=== PATIENT | female | born 1950 | race Caucasian/White ===

== ENCOUNTER 2025-05-02 14:11 | Inpatient (IN) ==
[2025-05-02 14:55] LABS: Hematocrit (blood only) 46.8 % (37.0-47.0); Hemoglobin 15.6 g/dl (12.0-16.0); Immature Granulocytes # (auto) 0.03 K/uL (0.01-0.20); Immature Granulocytes % (auto) 0.4 %; Mean Corpuscular Hemoglobin 30.7 pg (25.0-34.0); Mean Corpuscular Volume 92.1 fL (80.0-100.0); Platelet Count 359 K/uL (130-400); RDW Standard Deviation 42.8 fL (36.4-46.3); Red Blood Count 5.08 M/uL (4.20-5.40); White Blood Count 7.79 K/ul (4.8-10.8)
[2025-05-02 15:21] LABS: Alanine Aminotransferase 13.0 U/L (7-52); Albumin Globulin Ratio 1.2 (0.9-2); Alkaline Phosphatase 71.0 U/L (34-104); Anion Gap 8.0 (3-11); Bilirubin,Total 0.5 mg/dl (0.2-1.0); Blood Urea Nitrogen 11.0 mg/dl (6-23); Calcium 9.8 mg/dl (8.6-10.3); Carbon Dioxide 28.0 mmol/L (21-32); Chloride 106.0 mmol/L (98-107); Creatinine Clr Calc Pharmacy 51.9 ml/min; Globulin 3.5 gm/dl (2.5-4.0); Glucose 93.0 mg/dl (70-99(Fasting)); Lipase 16.0 U/L (11-82); Potassium 4.1 mmol/L (3.5-5.1); Sodium 142.0 mmol/L (136-145); Total Protein 7.7 gm/dl (6.0-8.3)
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
[2025-05-02 16:34] LABS: Appearance Urine Cloudy (Clear); Bacteria Urine Automated 4+ (None Seen); Cast Urine Automated 0-2 /lpf (0-2); Epithelial Cell Urine Auto 0-2 /hpf (0-2); Glucose Urine UA Negative (Negative); RBC Urine Automated 0-2 /hpf (0-2); WBC Urine Automated >50 /hpf (0-5)
[2025-05-02] MEDS: cefTRIAXone SODIUM 2,000 MG/50 ML BAG IV STA (17:49)
[2025-05-02] MEDS: DROPERIDOL 5 MG/2 ML VIAL IV STA (17:50)
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
[2025-05-02] MEDS: FOLIC ACID 1 MG TAB PO STA (19:42)
[2025-05-02] MEDS: THIAMINE HCL 100 MG TAB PO STA (19:42)
[2025-05-02] MEDS: LACTATED RINGER'S 1,000 ML IV SCH (19:44)
[2025-05-02 19:49] LABS: Thyroid Stimulating Hormone 2.171 uIu/ml (0.300-4.500)
[2025-05-02] MEDS ORDERED: ACETAMINOPHEN 325 MG TAB PO PRN (22:17)
[2025-05-03 05:58] LABS: Hematocrit (blood only) 41.3 % (37.0-47.0); Hemoglobin 14.1 g/dl (12.0-16.0); Immature Granulocytes # (auto) 0.02 K/uL (0.01-0.20); Immature Granulocytes % (auto) 0.3 %; Mean Corpuscular Hemoglobin 31.3 pg (25.0-34.0); Mean Corpuscular Volume 91.6 fL (80.0-100.0); Platelet Count 304 K/uL (130-400); RDW Standard Deviation 41.9 fL (36.4-46.3); Red Blood Count 4.51 M/uL (4.20-5.40); White Blood Count 7.39 K/ul (4.8-10.8)
[2025-05-03 06:15] LABS: Alanine Aminotransferase 11.0 U/L (7-52); Albumin Globulin Ratio 1.3 (0.9-2); Alkaline Phosphatase 58.0 U/L (34-104); Anion Gap 6.0 (3-11); Bilirubin,Total 0.5 mg/dl (0.2-1.0); Blood Urea Nitrogen 9.0 mg/dl (6-23); Calcium 8.9 mg/dl (8.6-10.3); Carbon Dioxide 28.0 mmol/L (21-32); Chloride 109.0 mmol/L (98-107); Creatinine Clr Calc Pharmacy 61.9 ml/min; Globulin 2.8 gm/dl (2.5-4.0); Glucose 96.0 mg/dl (70-99(Fasting)); Potassium 4.0 mmol/L (3.5-5.1); Sodium 143.0 mmol/L (136-145); Total Protein 6.4 gm/dl (6.0-8.3)
[2025-05-03] MEDS: MULTIVITAMIN TAB PO SCH (11:00)
[2025-05-03] MEDS: LOSARTAN POTASSIUM 25 MG TAB PO SCH (11:00)
[2025-05-03] MEDS: THIAMINE HCL 100 MG TAB PO SCH (11:01)
[2025-05-03] MEDS: FOLIC ACID 1 MG TAB PO SCH (11:01)
[2025-05-03] MEDS: cefTRIAXone SODIUM 1,000 MG/50 ML BAG IV SCH (17:04)
[2025-05-03] MEDS: MEMANTINE HCL 10 MG TAB PO SCH (17:17)
--- NOTE | 2025-05-03 17:21 | Hospitalist Progress Note ---
Date of Service May 03, 2025 Assessment & Plan (1) UTI (urinary tract infection): (2) Dementia: (3) Acute metabolic encephalopathy: (4) HTN (hypertension): Plan Patient is a 75-year-old female with a past medical history of dementia who presented to the ED on 05/02/2025 with complaints of increased agitation and suspected UTI Acute metabolic encephalopathy H/O Dementia with behavior disturbances Likely secondary to acute infection -- Reorient frequently -- Continue home medications Urinary tract infection Urine culture growing E. coli Continue IV Rocephin Hx breast CA: In remission Continue letrozole DVT Px: Lovenox SQ Code Status Full code Admission and Anticipated Discharge Date Admission Date: May 02, 2025 Subjective Patient is seen and examined at bedside Pleasantly confused Offers no new complaints Discussed with patient's at bedside Patient denies any dysuria, hematuria Review of Systems Review of Systems: All systems reviewed & are unremarkable except as noted in Subjective Physical Exam Physical Exam: Physical Exam: Vitals signs as noted above General Appearance:Moderately built and nourished, no apparent distress Head: normocephalic, Atraumatic Eyes: normal inspection, EOMI Neck: supple, Trachea midline Respiratory/Chest: Normal breath sounds, CTA, No accessory muscle use Cardiovascular: S1, S2, No murmur Abdomen/GI:Soft, Non tender, Bowel sounds present Extremities/Musculoskeletal:normal inspection, no edema Neurologic/Psych:AAOX1, grossly no focal neurological deficits Skin: normal color, warm Results & Data Results & Data Vital Signs (Past 12 Hours) Vital Signs Temp Pulse Resp BP Pulse Ox O2 Del Method 05/03/25 14:14 36.8 C 77 16 172/85 H 96 Room Air 05/03/25 11:55 Room Air Laboratory Results Short CBC 05/03/25 Range/Units 05:29 WBC 7.39 (4.8-10.8) K/ul Hgb 14.1 (12.0-16.0) g/dl Hct 41.3 (37.0-47.0) % Plt Count 304 (130-400) K/uL BMP 05/03/25 05:29 Sodium 143 Potassium 4.0 Chloride 109 H Carbon Dioxide 28 BUN 9 Creatinine 0.68 Glucose 96 Calcium 8.9 Liver Function 05/03/25 Range/Units 05:29 Total Bilirubin 0.5 (0.2-1.0) mg/dl AST 16 (13-39) U/L ALT 11 (7-52) U/L Alkaline Phosphatase 58 (34-104) U/L Albumin 3.6 (3.4-5.0) gm/dl (1) UTI (urinary tract infection) Urinary tract infection type: acute cystitis
[2025-05-03] MEDS: MELATONIN 3 MG TAB PO PRN (19:17)
[2025-05-03] MEDS ORDERED: MEMANTINE HCL 10 MG TAB PO SCH (21:00)
[2025-05-04] MEDS: LETROZOLE 2.5 MG TAB PO SCH (10:30)
[2025-05-04] MEDS: DONEPEZIL HCL 10 MG TAB PO SCH (10:31)
[2025-05-04] MEDS: ENOXAPARIN INJ 40 MG/0.4 ML SYR SQ SCH (10:36)
[2025-05-04 11:30] LABS: Hematocrit (blood only) 44.4 % (37.0-47.0); Hemoglobin 14.8 g/dl (12.0-16.0); Mean Corpuscular Hemoglobin 31.3 pg (25.0-34.0); Mean Corpuscular Volume 93.9 fL (80.0-100.0); Platelet Count 334 K/uL (130-400); RDW Standard Deviation 44.0 fL (36.4-46.3); Red Blood Count 4.73 M/uL (4.20-5.40); White Blood Count 6.36 K/ul (4.8-10.8)
[2025-05-04 11:44] LABS: Anion Gap 6.0 (3-11); Blood Urea Nitrogen 12.0 mg/dl (6-23); Calcium 9.4 mg/dl (8.6-10.3); Carbon Dioxide 29.0 mmol/L (21-32); Chloride 106.0 mmol/L (98-107); Creatinine Clr Calc Pharmacy 47.3 ml/min; Glucose 175.0 mg/dl (70-99(Fasting)); Potassium 3.8 mmol/L (3.5-5.1); Sodium 141.0 mmol/L (136-145)
--- NOTE | 2025-05-04 15:24 | Hospitalist Progress Note ---
Date of Service May 04, 2025 Assessment & Plan (1) UTI (urinary tract infection): (2) Dementia: (3) Acute metabolic encephalopathy: (4) HTN (hypertension): Plan Patient is a 75-year-old female with a past medical history of dementia who presented to the ED on 05/02/2025 with complaints of increased agitation and suspected UTI Acute metabolic encephalopathy H/O Dementia with behavior disturbances Likely secondary to acute infection -- Reorient frequently -- Continue home medications Patient's family not interested in rehab placement Urinary tract infection Urine culture grew pansensitive E. coli Continue IV Rocephin for now Hx breast CA: In remission Continue letrozole DVT Px: Lovenox SQ Code Status Full code Admission and Anticipated Discharge Date Admission Date: May 02, 2025 Subjective Patient is seen and examined at bedside Pleasantly confused Discussed with patient's family today Poor historian secondary to dementia Afebrile today Review of Systems Review of Systems: All systems reviewed & are unremarkable except as noted in Subjective Physical Exam Physical Exam: Physical Exam: Vitals signs as noted above General Appearance:Moderately built and nourished, no apparent distress Head: normocephalic, Atraumatic Eyes: normal inspection, EOMI Neck: supple, Trachea midline Respiratory/Chest: Normal breath sounds, CTA, No accessory muscle use Cardiovascular: S1, S2, No murmur Abdomen/GI:Soft, Non tender, Bowel sounds present Extremities/Musculoskeletal:normal inspection, no edema Neurologic/Psych:AAOX1, grossly no focal neurological deficits Skin: normal color, warm Results & Data Results & Data Vital Signs (Past 12 Hours) Vital Signs Temp Pulse Resp BP Pulse Ox O2 Del Method 05/04/25 09:25 36.8 C 67 18 140/80 96 Room Air Laboratory Results Short CBC 05/04/25 Range/Units 11:12 WBC 6.36 (4.8-10.8) K/ul Hgb 14.8 (12.0-16.0) g/dl Hct 44.4 (37.0-47.0) % Plt Count 334 (130-400) K/uL BMP 05/04/25 11:12 Sodium 141 Potassium 3.8 Chloride 106 Carbon Dioxide 29 BUN 12 Creatinine 0.89 Glucose 175 H Calcium 9.4 (1) UTI (urinary tract infection) Urinary tract infection type: acute cystitis
[2025-05-05 07:51] VITALS: BP 148/93; PULSE 76; RESP 18; TEMP 98.1; O2SAT 95
--- NOTE | 2025-05-05 12:56 | Hospitalist Progress Note ---
Date of Service May 05, 2025 Assessment & Plan (1) UTI (urinary tract infection): (2) Dementia: (3) Acute metabolic encephalopathy: (4) HTN (hypertension): Plan Patient is a 75-year-old female with a past medical history of dementia who presented to the ED on 05/02/2025 with complaints of increased agitation and suspected UTI Acute metabolic encephalopathy H/O Dementia with behavior disturbances Likely secondary to acute infection -- Reorient frequently -- Continue home medications Patient's family not interested in rehab placement Mental status seem to be back to baseline Plan to be discharged home with home health today Urinary tract infection Urine culture grew pansensitive E. coli Continue IV Rocephin Transition to oral antibiotics to complete the course Hx breast CA: In remission Continue letrozole DVT Px: Lovenox SQ Code Status Full code Disposition Home with home health Admission and Anticipated Discharge Date Admission Date: May 02, 2025 Subjective Patient is seen and examined at bedside Mental status seem to be back to baseline Discussed with patient's at bedside Patient offers no complaints Poor historian secondary to dementia Plan to be discharged home today Review of Systems Review of Systems: All systems reviewed & are unremarkable except as noted in Subjective Physical Exam Physical Exam: Physical Exam: Vitals signs as noted above General Appearance:Moderately built and nourished, no apparent distress Head: normocephalic, Atraumatic Eyes: normal inspection, EOMI Neck: supple, Trachea midline Respiratory/Chest: Normal breath sounds, CTA, No accessory muscle use Cardiovascular: S1, S2, No murmur Abdomen/GI:Soft, Non tender, Bowel sounds present Extremities/Musculoskeletal:normal inspection, no edema Neurologic/Psych:AAOX1, grossly no focal neurological deficits Skin: normal color, warm Results & Data Results & Data Vital Signs (Past 12 Hours) Vital Signs Temp Pulse Resp BP Pulse Ox O2 Del Method 05/05/25 07:50 36.7 C 76 18 148/93 H 95 Room Air (1) UTI (urinary tract infection) Urinary tract infection type: acute cystitis
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
[2025-05-05] MEDS: cefTRIAXone SODIUM 1,000 MG/50 ML BAG IV SCH (13:06)
== END 2025-05-05 14:54 | disposition home health service (06) | DRG 689 ==
LOC: ED 14:11 → 3N 17:49 → SUATTDRO 17:49 → 3N 21:50